=== PATIENT | male | born 1970 | race Hispanic/Latino ===

== ENCOUNTER 2018-03-09 22:18 | Emergency (ER) | payer BC ==
[~2018-03-09] VITALS: Ht 172.7 cm; Wt 104.3 kg
[2018-03-09] MEDS ORDERED: TALTZ SYRI80 MG/1 ML SUB-Q (22:43)
[2018-03-09] MEDS ORDERED: LISINOPRIL20 MG PO (22:43)
[2018-03-10] MEDS ORDERED: EPIPEN 2-P0.3 MG/0.3 IM (01:38)
[2018-03-10] MEDS ORDERED: BENADRYL ALLERG25 MG PO (01:42)
== END 2018-03-10 02:15 | disposition home or self-care (01) ==
LOC: ED 22:18
DX: T63.441A Toxic effect of venom of bees, accidental (unintentional), initial encounter (principal); I10 Essential (primary) hypertension; Z91.030 Bee allergy status; Z79.899 Other long term (current) drug therapy
CPT/HCPCS: 96372; 96374; 96375; 99283; J1200; J2930